=== PATIENT | female | born 1965 | race Caucasian/White ===

== ENCOUNTER → 2017-05-12 | Outpatient (CLI) | payer OTHER ==
--- NOTE | ~2017-05-12 | 2DMMODE ---
[facility] [address] [place] [address] 2 D/M-MODE ECHOCARDIOGRAM Name: CHANTEL HUA Room #: [facility]#: [id number] Admission: 05/12/17 Attend Phys: Den Mcqueen Discharge: Date of : 67 Date of Service: 05/12/17 1000 Report #: [id number] THIS REPORT FOR: //name// APPROVED REPORT Study performed: 05/12/2017 09:19:38 EXAM: Comprehensive 2D, Doppler, and color-flow Echocardiogram Patient Location: Out-Patient Status: routine BSA: 1.78 HR: 79 bpm BP: 148/83 mmHg Rhythm: NSR Other Information Study Quality: Good Indications History of positive calcium score, CAD. Hx: HLP 2D Dimensions RVDd: 30.31 mm LVEF(%): 76.86 (>50%) IVSd: 7.11 (7-11mm) LVOT Diam: 18.98 (18-24mm) LVDd: 48.14 mm PWd: 7.94 (7-11mm) Ascending Ao: 23.38 (22-36mm) LVDs: 26.19 (25-40mm) Aortic Root: 29.43 mm Chen's LVEF: 76.86 % Volumes Left Atrial Volume (Systole) Single Plane 4CH: 25.25 mL Single Plane 2CH: 33.01 mL LA ESV Index: 18.00 mL/m2 Aortic Valve AoV Peak Yoav.: 1.35 m/s AO Peak Gr.: 7.25 mmHg LVOT Max P.02 mmHg LVOT Max V: 1.12 m/s LISSA Vmax: 2.35 cm2 Mitral Valve E/A Ratio: 1.2 MV Decel. Time: 224.48 ms [facility] [address] [place] [address] 2 D/M-MODE ECHOCARDIOGRAM Name: CHANTEL HUA Room #: [facility]#: [id number] Admission: 05/12/17 Attend Phys: Den Mcqueen Discharge: Date of : 67 Date of Service: 05/12/17 1000 Report #: [id number] MV E Max Yoav.: 0.87 m/s MV A Yoav.: 0.75 m/s MV PHT: 65.10 ms IVRT: 72.66 ms Pulmonary Valve PV Peak Yoav.: 1.11 m/s PV Peak Gr.: 4.94 mmHg Pulmonary Vein P Vein S: 0.70 m/s P Vein D: 0.36 m/s P Vein S/D Ratio: 1.94 Tricuspid Valve TR Peak Yoav.: 2.04 m/s RAP Estimate: 5.00 mmHg TR Peak Gr.: 16.59 mmHg PA Pressure: 22.00 mmHg Left Ventricle The left ventricle is normal size. There is normal LV segmental wall motion. There is normal left ventricular wall thickness. Left ventricular systolic function is normal. LVEF is 55-60%. Moderate diastolic dysfunction is present (pseudonormal filling). Right Ventricle The right ventricle is normal size. The right ventricular systolic function is normal. Atria The left atrium size is normal. The right atrium size is normal. Aortic Valve The aortic valve is normal in structure. No aortic regurgitation is present. There is no aortic valvular stenosis. Mitral Valve The mitral valve is normal in structure. Mild mitral regurgitation. Tricuspid Valve The tricuspid valve is normal in structure. Trace tricuspid regurgitation. Estimated PAP is 20-25mmHg. Pulmonic Valve The pulmonary valve is normal in structure. Trace pulmonic [facility] [address] [place] [address] 2 D/M-MODE ECHOCARDIOGRAM Name: CHANTEL HUA [id number] Admission: 05/12/17 Attend Phys: Den Mcuqeen Discharge: Date of : 67 Date of Service: 05/12/17 1000 Report #: [id number] regurgitation. Great Vessels The aortic root is normal in size. The ascending aorta is normal in size. IVC is normal in size and collapses >50% with inspiration. Pericardium There is no pericardial effusion. <Conclusion> The left ventricle is normal size. LVEF is 55-60%. The aortic valve is normal in structure. The mitral valve is normal in structure. Mild mitral regurgitation. The tricuspid valve is normal in structure. Trace tricuspid regurgitation. Estimated PAP is 20-25mmHg. The pulmonary valve is normal in structure. Trace pulmonic regurgitation. There is no pericardial effusion. <ELECTRONICALLY SIGNED> By: Den Clark MD 05/12/17 1000 1000 1000 Den Clark MD /INF
== END ==
LOC: NUC 08:11
DX: I25.10 Atherosclerotic heart disease of native coronary artery without angina pectoris (principal); I34.0 Nonrheumatic mitral (valve) insufficiency; E78.5 Hyperlipidemia, unspecified